=== PATIENT | female | born 1960 | race Hispanic/Latino ===

== ENCOUNTER 2020-04-22 07:51 | Day surgery (SDC) | payer BC ==
[2020-04-22] VITALS (19 sets, daily range): BP systolic 128–167; BP diastolic 69–91
[~2020-04-22] VITALS: Ht 149.9 cm; Wt 86.2 kg
[~2020-04-22 07:51] MED LIST: ATOR40TA71 PO; EZET10TA48 PO; LEVO25TA85 PO; SODIUM CHLORIDE 0.9% 1000ML 1,000 ML IV ONE
[2020-04-22] MEDS ORDERED: IOHEXOL-350 50ML VIAL IV ONE (08:51)
[2020-04-22] MEDS ORDERED: INDOMETHACIN 50 MG SUPP.RECT RC SCH (09:30)
== END 2020-04-22 13:15 | disposition home or self-care (01) ==
LOC: DAH 07:51 → ENDO 07:51
PROVIDERS: ATTEND Internal Medicine Gastroenterology
DX: R93.3 Abnormal findings on diagnostic imaging of other parts of digestive tract (principal); K80.50 Calculus of bile duct without cholangitis or cholecystitis without obstruction; R93.5 Abnormal findings on diagnostic imaging of other abdominal regions, including retroperitoneum; I10 Essential (primary) hypertension; E66.01 Morbid (severe) obesity due to excess calories; Z85.3 Personal history of malignant neoplasm of breast; K57.30 Diverticulosis of large intestine without perforation or abscess without bleeding; R74.8 Abnormal levels of other serum enzymes; Z90.49 Acquired absence of other specified parts of digestive tract; Z20.828 Contact with and (suspected) exposure to other viral communicable diseases; Z90.89 Acquired absence of other organs; Z79.899 Other long term (current) drug therapy
CPT/HCPCS: 43237; 43262; 43264; 74328; A4215 ×2; A4216; A4221; A4222; A4223; A4606; A4620; A4657 ×2; A4663; C9803; J7030; Q9967; U0003; 74330; C1769